=== PATIENT | male | born 1995 | race Caucasian/White ===

== ENCOUNTER 2016-12-24 12:51 | Emergency (ER) | payer MEDICAID ==
[2016-12-24 12:54] VITALS: BMI 21.1
[2016-12-24 12:58] VITALS: RESP 18; O2SAT 98
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
[2016-12-24 13:42] VITALS: BP 101/64; PULSE 75; TEMP 97.3
--- NOTE | 2016-12-24 15:56 | RAD ---
HISTORY: chest discomfort COMPARISON: No prior. TECHNIQUE: Chest PA and lateral FINDINGS: LUNGS: No active pulmonary disease. PLEURA: No significant pleural effusion identified. No pneumothorax apparent. CARDIOVASCULAR: Normal. OSSEOUS STRUCTURES: No significant abnormalities. VISUALIZED UPPER ABDOMEN: Normal. OTHER FINDINGS: None. IMPRESSION: No active disease.
--- NOTE | 2016-12-28 12:54 | CARD ---
APPROVED REPORT EKG Measurement Heart [id number] <Conclusion> Normal sinus rhythm Normal ECG
== END 2016-12-24 13:53 | disposition home or self-care (01) ==
LOC: C.ER 12:51 → SUPCPDRO 12:51 → C.ER 13:53
DX: H92.03 Otalgia, bilateral (principal)

== ENCOUNTER 2017-06-29 20:58 | Emergency (ER) | payer MEDICAID ==
[2017-06-29 20:58] VITALS: BMI 21.1
[2017-06-29 21:05] VITALS: O2SAT 95
[2017-06-29] MEDS ORDERED: Sodium Chloride 0.9% 1,000 ML IV ONE ×2 (21:41→22:59)
[2017-06-29 21:48] LABS: BASO # 0.1 K/uL (0.0-0.2); BASO % 0.6 % (0.0-2.0); EOS # 0.3 K/uL (0.0-0.7); EOS % 1.8 % (0.0-4.0); LYMPH # 3.9 K/uL (1.0-4.3); LYMPH % 21.9 % (20.0-40.0); MEAN CELL VOLUME 85.7 fL (80.0-94.0); MEAN CORPUSCULAR HEMOGLOBIN 28.6 pg (27.0-31.0); MEAN CORPUSCULAR HGB CONC 33.4 g/dL (33.0-37.0); MEAN PLATELET VOLUME 7.8 fL (7.2-11.7); MONO % 5.4 % (0.0-10.0); WHITE BLOOD COUNT 17.8 K/uL (4.8-10.8)
[2017-06-29 22:25] LABS: CHLORIDE 94 mmol/L (98-107); POTASSIUM 4.7 mmol/L (3.6-5.2); SODIUM 132 mmol/L (132-148)
[2017-06-29 22:27] LABS: ALB/GLOB RATIO 1.2 (1.0-2.1); ALKALINE PHOSPHATASE 51 U/L (38-126); AST/SGOT 24 U/L (17-59); BILIRUBIN,TOTAL 0.6 mg/dL (0.2-1.3); CARBON DIOXIDE 25 mmol/L (22-30); GFR AFRICAN-AMERICAN > 60; TOTAL PROTEIN 7.8 g/dL (6.3-8.3)
[2017-06-29 22:28] LABS: ALT/SGPT 30 U/L (21-72); BLOOD UREA NITROGEN 22 mg/dL (9-20); CALCIUM 8.5 mg/dl (8.6-10.4); GLUCOSE,RANDOM 98 mg/dL (75-110)
[2017-06-29 23:15] LABS: RBC URINE 3 /hpf (0-3); URINE BACTERIA RARE (<OCC); URINE BILIRUBIN NEGATIVE (NEGATIVE); URINE BLOOD NEGATIVE (NEGATIVE); URINE COLOR Yellow (YELLOW); URINE GLUCOSE (UA) NORMAL (Normal); URINE KETONE NEGATIVE (NEGATIVE); URINE LEUKOCYTE ESTERASE NEG Leu/uL (Negative); URINE PROTEIN NEGATIVE (NEGATIVE); URINE UROBILINOGEN NORMAL mg/dL (0.2-1.0); WBC URINE 2 /hpf (0-5)
--- NOTE | 2017-06-29 23:39 | CT ---
EXAM: CT Head Without Intravenous Contrast CLINICAL HISTORY: 21 years old, male; Signs and symptoms; Visual disturbance; Additional info: Vomiting, dizzy, dilated pupils TECHNIQUE: Axial computed tomography images of the head/brain without intravenous contrast. All CT scans at this facility use one or more dose reduction techniques, viz.: automated exposure control; ma/kV adjustment per patient size (including targeted exams where dose is matched to indication; i.e. head); or iterative reconstruction technique. COMPARISON: No relevant prior studies available. FINDINGS: Brain: Mild atrophy. Prominent extra-axial spaces along frontal convexities. Small calcification within extra-axial space along LEFT frontal convexity. No intracranial hemorrhage. No mass. No definite edema. Ventricles: No hydrocephalus. Bones/joints: No acute fracture. Soft tissues: Unremarkable. Sinuses: No acute sinusitis. Mastoid air cells: No mastoid effusion. Orbits: Unremarkable as visualized. IMPRESSION: 1. No definite acute intracranial abnormality. Acute infarction may be CT occult within first 24 hours. If a focal deficit persists, consider followup CT or MRI for further evaluation. 2. Incidental/non-acute findings are described above.
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
[2017-06-30 00:21] VITALS: BP 130/74; PULSE 93; RESP 16; TEMP 97.4
--- NOTE | 2017-06-30 09:44 | RAD ---
HISTORY: Vomiting, pain COMPARISON: Comparison is made to 12/24/2016 FINDINGS: LUNGS: No active pulmonary disease. PLEURA: No significant pleural effusion identified, no pneumothorax apparent. CARDIOVASCULAR: Normal. OSSEOUS STRUCTURES: No significant abnormalities. VISUALIZED UPPER ABDOMEN: Normal. OTHER FINDINGS: None. IMPRESSION: No active disease.
== END 2017-06-30 00:15 | disposition home or self-care (01) ==
LOC: C.ER 20:58
DX: R11.2 Nausea with vomiting, unspecified (principal)
CPT/HCPCS: 70450; 71010; 80053; 80324; 80345; 80346; 80349; 80353; 80358; 80361; 81001; 83690; 83992; 85025; 96361; 96374; 96375; 99285; J2765; J7040

== ENCOUNTER 2017-11-08 19:40 | Emergency (ER) | payer MEDICAID ==
[2017-11-08 19:40] VITALS: BMI 21.1
[2017-11-08] MEDS ORDERED: Sodium Chloride 0.9% 1,000 ML IV ONE (21:19)
[2017-11-08] MEDS ORDERED: DiphenhydrAMINE 50 mg/ml Inj IVP STA (21:20)
[2017-11-08] MEDS ORDERED: DiphenhydrAMINE 50 mg/ml Inj ONE (21:54)
[2017-11-08 21:59] LABS: BASO % 0.1 % (0.0-2.0); EOS % 0.2 % (0.0-4.0); HEMOGLOBIN 14.5 g/dL (12.0-18.0); LYMPH # 1.1 K/uL (1.0-4.3); LYMPH % 11.3 % (20.0-40.0); MEAN CELL VOLUME 83.3 fL (80.0-94.0); MEAN CORPUSCULAR HEMOGLOBIN 28.4 pg (27.0-31.0); MEAN CORPUSCULAR HGB CONC 34.1 g/dL (33.0-37.0); MEAN PLATELET VOLUME 8.2 fL (7.2-11.7); MONO # 0.7 K/uL (0.0-0.8); MONO % 6.7 % (0.0-10.0); NEUT % 81.7 % (50.0-75.0); NRBC % 0.1 % (0.0-2.0); RBC 5.12 Mil/uL (4.40-5.90); RED CELL DISTRIBUTION WIDTH 13.7 % (11.5-14.5); WHITE BLOOD COUNT 9.8 K/uL (4.8-10.8)
[2017-11-08 22:04] LABS: ALB/GLOB RATIO 1.3 (1.0-2.1); ALBUMIN 4.4 g/dL (3.5-5.0); CALCIUM 9.6 mg/dl (8.6-10.4); GFR AFRICAN-AMERICAN > 60; GFR NON-AFRICAN AMERICAN > 60
[2017-11-08 22:05] LABS: ALT/SGPT 15 U/L (21-72); AST/SGOT 27 U/L (17-59); BLOOD UREA NITROGEN 9 mg/dL (9-20); MAGNESIUM 1.8 mg/dL (1.6-2.3)
[2017-11-08 22:20] LABS: SQUAMOUS EPITHIAL < 1 /hpf (0-5); URINE BILIRUBIN NEGATIVE (NEGATIVE); URINE BLOOD NEGATIVE (NEGATIVE); URINE CLARITY Clear (Clear); URINE COLOR Amber (YELLOW); URINE GLUCOSE (UA) NORMAL (Normal); URINE LEUKOCYTE ESTERASE NEG Leu/uL (Negative); URINE NITRATE POSITIVE (NEGATIVE); URINE PROTEIN NEGATIVE (NEGATIVE)
[2017-11-08 22:34] LABS: BARBITURATES, UR NEGATIVE (NEGATIVE); PHENCYCLIDINE, UR NEGATIVE (NEGATIVE)
[2017-11-08 22:36] LABS: BENZODIAZEPINES, UR POSITIVE (NEGATIVE); OPIATES, UR POSITIVE (NEGATIVE)
--- NOTE | 2017-11-08 23:12 | CT ---
EXAM: CT Head Without Intravenous Contrast EXAM DATE/TIME: 11/08/2017 10:03 PM CLINICAL HISTORY: 22 years old, male; Signs and symptoms; Other: Left neck/arm pain; Additional info: Left neck/arm spasms. H/o head injury last year. TECHNIQUE: Axial computed tomography images of the head/brain without intravenous contrast. All CT scans at this facility use one or more dose reduction techniques, viz.: automated exposure control; ma/kV adjustment per patient size (including targeted exams where dose is matched to indication; i.e. head); or iterative reconstruction technique. COMPARISON: Prior images are not available for review. Correlation is made with a report dated 06/29/17 FINDINGS: Brain: Ventricles are normal in size and configuration. There is no midline shift. There is mild prominence of sulci and gyri There are no intra-axial or extra-axial mass lesions or areas of hemorrhage. There is a left frontal extra-axial calcification. There are no abnormal fluid collections. [place]-white differentiation is maintained. Ventricles: See above. Bones: Cranial vault is intact. Soft tissues: unremarkable Sinuses: There is no acute sinusitis. Ears and mastoids: Middle ears and mastoids are unremarkable Orbits: Orbital contents are unremarkable. IMPRESSION: No acute intracranial abnormality
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
[2017-11-09 00:06] VITALS: BP 110/70; PULSE 70; RESP 14; TEMP 97; O2SAT 98
== END 2017-11-09 00:06 | disposition left against medical advice (07) ==
LOC: C.ER 19:40
DX: M62.838 Other muscle spasm (principal)
CPT/HCPCS: 70450; 80053; 80324; 80345; 80346; 80349; 80353; 80358; 80361; 81001; 83735; 83992; 85025; 87086; 96361; 96374; 99282; J1200; J7040